=== PATIENT | female | born 1985 | race Caucasian/White ===

== ENCOUNTER 2023-09-20 22:45 | Emergency (ER) | payer SELFPAY ==
--- NOTE | 2023-09-20 22:50 | DI.RAD.S_ITS ---
PROCEDURE: XR CHEST 1V INDICATIONS: SOB TECHNIQUE: One view of the chest was acquired. COMPARISON: [facility], CR, XR CHEST 1 VIEW, 01/17/2023, 20:51. FINDINGS: Surgical changes and devices: None. Lungs and pleura: Lungs are clear. No pleural effusions or pneumothorax. Mediastinum: Mediastinal contours appear normal. Heart size is normal. Bones and chest wall: No suspicious bony lesions. Overlying soft tissues appear unremarkable. IMPRESSION: No acute cardiopulmonary abnormality is seen. Dictated by: Catie Shelley M.D. on 09/20/2023 at 23:26 Approved by: Catie Shelley M.D. on 09/20/2023 at 23:27
[2023-09-20 22:54] VITALS: PULSE 108; RESP 12; O2SAT 98
[2023-09-20 22:55] VITALS: BP 177/92; PULSE 104; O2SAT 98
[2023-09-20 22:57] VITALS: BP 177/92; PULSE 104; RESP 22; TEMP 36.9; O2SAT 98; BMI 41.8
[2023-09-20 23:00] VITALS: BP 164/90; PULSE 102; O2SAT 98
[2023-09-20 23:30] VITALS: BP 162/113; PULSE 103; RESP 25; O2SAT 96
--- NOTE | 2023-09-20 23:34 | ED_ITS ---
HPI - Chest Pain General Chief Complaint: Chest Pain Stated Complaint: chest pain, very tired, short of breath Time Seen by Provider: 09/20/23 22:49 Source: patient Mode of arrival: Ambulatory Limitations: no limitations History of Present Illness HPI narrative: Patient is a 38-year-old female. She states she has a history of heart failure. Is not on any of her medications. She also thinks that she has had a blood clot in her right lung in the past. Was on anticoagulation for period of time but is not currently on any. She was not currently on control. She is here because of chest discomfort and shortness of breath and feeling tired and fatigued. The symptoms started just a couple hours ago. Has not tried anything for symptoms. No lower extremity swelling. No abdominal pain or nausea or vomiting. Is having some cough. No sinus congestion or sore throat. Review of Systems Review of Systems ROS Unobtainable: All systems reviewed & are unremarkable except as noted in HPI and below Patient History Social History Smoking Status: Current every day smoker Smoking Status: Current every day smoker tobacco type: cigarettes Substance Use Type: marijuana Exam Initial Vital Signs Initial Vital Signs: Vital Signs Pulse Rate 108 H 09/20/23 22:54 Respiratory Rate 12 09/20/23 22:54 Pulse Oximetry 98 09/20/23 22:54 Oxygen Delivery Method Room Air 09/20/23 22:54 Const General: cooperative, well developed and No ill appearing HENMT Head: normal to inspection and normocephalic Resp Effort & Inspection: normal respiratory effort Auscultation: clear to auscultation bilaterally Cardio Rate: regular rate Rhythm: regular rhythm GI Inspection: normal to inspection and non-distended Skin General: no rashes or lesions noted Neuro General: patient alert and moves all extremities Extrem General: No edema Course Orders Ordered: ED Orders 09/20/23 22:50 XR chest 1V Stat EKG-12 Lead Stat 09/20/23 23:00 Complete Blood Count AUTO DIFF Stat Comprehensive Metabolic Panel Stat D Dimer Stat Lipase Stat NT-proBNP (BNP-Adult 18+) Stat Test Serum,Qual Stat Troponin & CK Cardiac Panel Stat 09/20/23 23:07 Covid-19 + FLU A/B + RSV - PCR Stat Vital Signs Vital signs: Vital Signs - 8 hr 09/20/23 22:54 09/20/23 22:55 09/20/23 22:55 Temperature Pulse Rate 108 H 104 H Respiratory Rate 12 Blood Pressure 177/92 H Pulse Oximetry 98 98 Oxygen Delivery Method Room Air Room Air 09/20/23 22:57 09/20/23 23:00 09/20/23 23:00 Temperature 98.4 F Pulse Rate 104 H 102 H Respiratory Rate 22 Blood Pressure 177/92 H 164/90 H Pulse Oximetry 98 98 Oxygen Delivery Method Room Air Room Air 09/20/23 23:30 09/20/23 23:30 09/21/23 00:00 Temperature Pulse Rate 103 H 93 H Respiratory Rate 25 H Blood Pressure 162/113 H Pulse Oximetry 96 97 Oxygen Delivery Method Room Air 09/21/23 00:01 09/21/23 00:01 09/21/23 00:30 Temperature Pulse Rate 94 H 97 H Respiratory Rate 36 H 20 Blood Pressure 142/67 H Pulse Oximetry 98 98 Oxygen Delivery Method Room Air Room Air 09/21/23 00:31 09/21/23 00:31 09/21/23 01:00 Temperature Pulse Rate 95 H 89 Respiratory Rate 19 24 Blood Pressure 140/56 L Pulse Oximetry 98 97 Oxygen Delivery Method Room Air Room Air 09/21/23 01:01 09/21/23 01:01 Temperature Pulse Rate 88 Respiratory Rate 9 L Blood Pressure 167/72 H Pulse Oximetry 97 Oxygen Delivery Method MDM - Chest Pain Lab Data Attestation: I reviewed the patient's lab results. 09/20/23 23:00 09/20/23 23:00 Labs: Lab Results 09/20/23 09/20/23 Range/Units 23:00 23:07 WBC 15.7 H (4.5-11.0) X10^3/uL RBC 4.49 (4.0-5.2) X10^6/uL Hgb 13.6 (12.0-16.0) g/dL Hct 40.5 (36-46) % MCV 90.2 (80-100) fL MCH 30.3 (26-34) PG MCHC 33.5 (30-36) % RDW 13.5 (11.6-14.8) % Plt Count 319 (150-400) X10^3/uL Neut % (Auto) 66.5 (50-75) % Lymph % (Auto) 24.1 L (25-40) % [place] % (Auto) 6.0 (3-14) % Eos % (Auto) 2.3 (2-4) % Baso % (Auto) 1.1 (0-2) % Neut # (Auto) 32319 H (1422-5363) /uL Lymph # (Auto) 3800 (5332-4389) /uL [place] # (Auto) 900 (0-900) /uL Eos # (Auto) 400 (0-450) /uL Baso # (Auto) 200 H (0-100) /uL D-Dimer 492 (<500) ng/ml Sodium 141 (137-145) mmol/L Potassium 4.0 (3.4-5.1) mmol/L Chloride 110 H (98-107) mmol/L Carbon Dioxide 27 (22-32) mmol/L BUN 13 (7-17) mg/dL Creatinine 0.60 (0.52-1.04) mg/dL Estimated GFR > 60 (>60) mL/min BUN/Creatinine Ratio 21.7 (6-22) Glucose 121 H (70-100) mg/dL Calcium 8.9 (8.4-10.2) mg/dL Total Bilirubin 0.4 (0.2-1.3) mg/dL AST 28 (14-36) IU/L ALT 30 (<35) IU/L Alkaline Phosphatase 98 (38-126) U/L Total Creatine Kinase 40 (30-135) U/L Troponin I < 0.012 (0.01-0.034) ng/mL NT-Pro-B Natriuret Pep 166 H (<125) pg/mL Total Protein 7.0 (6.3-8.2) g/dL Albumin 3.8 (3.5-5.0) g/dL Globulin 3.2 (1.7-4.1) g/dL Albumin/Globulin Ratio 1.2 (1.0-2.8) Lipase 290 (23-300) U/L Serum , Qual Negative (Negative) SARS-CoV-2 (PCR) Negative (Negative) Influenza A (RT-PCR) Flu a negative (NEGATIVE) Influenza B (RT-PCR) Flu b negative (NEGATIVE) RSV (PCR) Negative (Negative) Imaging Data Chest x-ray: Radiologist's Impression: PROCEDURE: XR CHEST 1V INDICATIONS: SOB TECHNIQUE: One view of the chest was acquired. COMPARISON: [facility], CR, XR CHEST 1 VIEW, 01/17/2023, 20:51. FINDINGS: Surgical changes and devices: None. Lungs and pleura: Lungs are clear. No pleural effusions or pneumothorax. Mediastinum: Mediastinal contours appear normal. Heart size is normal. Bones and chest wall: No suspicious bony lesions. Overlying soft tissues appear unremarkable. IMPRESSION: No acute cardiopulmonary abnormality is seen. ECG Data Attestation: I personally reviewed and interpreted this ECG as follows: Interpretation: Sinus rhythm Ventricular rate 98 LVH Normal axis No ST T wave changes MDM Narrative Medical decision making narrative: Patient is well-appearing. Not hypoxic. Lungs are clear. Very benign exam. D-dimer is negative, troponins negative, chest x-ray is negative, COVID flu RSV are also negative. Patient clinically not in heart failure. Low suspicion for ACS. Was signs of pneumonia. Patient clinically does not have a URI. She was afebrile. No intra-abdominal symptoms. I did discuss this with the patient. She understands lack of a definitive diagnosis but also understands what we have evaluated for here in the ER. There was no indication for antibiotics. Recommended Tylenol/ibuprofen for any body aches. She was given return precautions. She expressed understanding and agreement. Discharge Plan Departure Patient Disposition: Home Clinical Impression: Fatigue, Shortness of breath Instructions: DI for Shortness of Breath Activity Restrictions/Additional Instructions: I recommend that you continue to take all of your medications as directed. You can take Tylenol/ibuprofen for any fevers or body aches. Be sure that you were increasing your fluid intake. Contact your primary doctor for a follow-up. Return to the emergency department for new or worsening symptoms. Stand Alone Forms: Patient Portal/API
[2023-09-20 23:42] LABS: Add Manual Diff / Slide Review NO; Basophils Absolute Auto 200 /uL (0-100); Basophils Percent Auto 1.1 % (0-2); Eosinophils Absolute Auto 400 /uL (0-450); Eosinophils Percent Auto 2.3 % (2-4); Hematocrit 40.5 % (36-46); Hemoglobin 13.6 g/dL (12.0-16.0); Lymphocytes Absolute Auto 3800 /uL (1100-4500); Lymphocytes Percent Auto 24.1 % (25-40); Mean Corpuscular HGB Conc 33.5 % (30-36); Mean Corpuscular Hemoglobin 30.3 PG (26-34); Mean Corpuscular Volume 90.2 fL (80-100); Monocytes Absolute Auto 900 /uL (0-900); Neutrophils Absolute Auto 10500 /uL (1500-7000); Neutrophils Percent Auto 66.5 % (50-75); Platelet Count 319 X10^3/uL (150-400); Red Blood Cell Count 4.49 X10^6/uL (4.0-5.2); Red Cell Distribution Width 13.5 % (11.6-14.8); White Blood Cell Count 15.7 X10^3/uL (4.5-11.0)
[2023-09-20 23:45] LABS: D Dimer 492 ng/ml (<500)
[2023-09-20 23:47] LABS: Alanine Aminotransferase 30 IU/L (<35); Albumin 3.8 g/dL (3.5-5.0); Albumin Globulin Ratio 1.2 (1.0-2.8); Alkaline Phosphatase 98 U/L (38-126); Aspartate Aminotransferase 28 IU/L (14-36); BUN Creatinine Ratio 21.7 (6-22); Bilirubin Total 0.4 mg/dL (0.2-1.3); Blood Urea Nitrogen 13 mg/dL (7-17); Calcium 8.9 mg/dL (8.4-10.2); Carbon Dioxide 27 mmol/L (22-32); Chloride 110 mmol/L (98-107); Creatine Kinase 40 U/L (30-135); Estimated Glomerular Filt Rate > 60 mL/min (>60); Globulin 3.2 g/dL (1.7-4.1); Glucose 121 mg/dL (70-100); HEMOLYSIS 20 (0-50); Lipase 290 U/L (23-300); Sodium 141 mmol/L (137-145)
[2023-09-20 23:55] LABS: Pregnancy Test Serum,Qual Negative (Negative)
[2023-09-20 23:59] LABS: NT-proBNP (BNP-Adult 18+) 166 pg/mL (<125); Troponin I < 0.012 ng/mL (0.01-0.034)
[2023-09-21] VITALS: PULSE 93; O2SAT 97
[2023-09-21 00:01] VITALS: BP 142/67; PULSE 94; RESP 36; O2SAT 98
[2023-09-21 00:30] VITALS: PULSE 97; RESP 20; O2SAT 98
[2023-09-21 00:31] VITALS: BP 140/56; PULSE 95; RESP 19; O2SAT 98
[2023-09-21 00:48] LABS: Influenza A - CEPHEID Flu A NEGATIVE (NEGATIVE); Influenza B - CEPHEID Flu B NEGATIVE (NEGATIVE); Respiratory Syncytial Virus Negative (Negative)
[2023-09-21 00:54] LABS: COVID-19 CEPHEID 4-PLEX PCR Negative (Negative)
[2023-09-21 01:00] VITALS: PULSE 89; RESP 24; O2SAT 97
[2023-09-21 01:01] VITALS: BP 167/72; PULSE 88; RESP 9; O2SAT 97
== END 2023-09-21 01:14 | disposition home or self-care (01) ==
PROVIDERS: Emergency Provider Emergency Medicine
DX: R53.83 Other fatigue (principal); R06.02 Shortness of breath; R07.9 Chest pain, unspecified; R79.89 Other specified abnormal findings of blood chemistry; Z20.822 Contact with and (suspected) exposure to COVID-19
CPT/HCPCS: 0241U; 36415; 71045; 80053; 82550; 83690; 83880; 84484; 84703; 85025; 85379; 93005; 93010; 99283; 99284